=== PATIENT | female | born 1990 | race Caucasian/White ===

== ENCOUNTER 2019-04-08 16:38 | Emergency (ER) | payer BC ==
--- NOTE | 2019-04-08 17:27 | UC ---
FLU HPI - HPI Summary HPI Summary: 28 yo female presents with flu like symptoms. She tells me that yesterday she developed a fever of 100.4 and felt body aches and fatigue. Today her symptoms have improved and she has not had a temperature above 99F without treatment. She is currently 34 weeks with her first and last OBGYN check up was 4 days ago and everything was normal per pt. She denies headache, dizziness, sinus symptoms, sore throat, cough, SOB, chest pain, abdominal pain, n/v/d/c, dysuria, flank pain, pelvic pain, vaginal bleeding. Has felt the baby move and be very active as usual - History of Current Complaint Stated Complaint: FLU SYMPTOMS Time Seen by Provider: 04/08/19 17:27 Hx Obtained From: Patient Onset/Duration: Sudden Onset Severity Currently: Mild Severity Initially: Moderate Pain Intensity: 4 Pain Scale Used: 0-10 Numeric - Allergy/Home Medications Allergies/Adverse Reactions: Allergies Allergy/AdvReac Type Severity Reaction Status Date / Time No Known Allergies Allergy Verified 04/08/19 17:32 Home Medications: Home Medications Acetaminophen [Tylenol Extra Strength] 1,000 mg PO Q6H PRN 04/08/19 [History Confirmed 04/08/19] Vitamin TAB* 1 tab PO DAILY 04/08/19 [History Confirmed 04/08/19] PMH/Surg Hx/FS Hx/Imm Hx - Additional Past Medical History Additional PMH: None - Surgical History Surgical History: None - Family History Known Family History: Positive: None - Social History Occupation: Employed Full-time Lives: With Family Alcohol Use: None Substance Use Type: None Smoking Status (MU): Never Smoked Tobacco Review of Systems All Other Systems Reviewed And Are Negative: No Constitutional: Positive: Fever - resolved, Fatigue, Other - Body aches Skin: Positive: Negative Eyes: Positive: Negative ENT: Positive: Negative Respiratory: Positive: Negative Cardiovascular: Positive: Negative Gastrointestinal: Positive: Negative Genitourinary: Positive: Negative Motor: Positive: Negative Neurovascular: Positive: Negative Musculoskeletal: Positive: Negative Neurological: Positive: Negative Psychological: Positive: Negative Physical Exam - Summary Physical Exam Summary: GENERAL: NAD. WDWN. No pain distress. SKIN: No rashes, sores, lesions, or open wounds. HEENT: Head: AT/NC Eyes: EOM intact. Conjunctiva clear without inflammation or discharge. Ears: Hearing grossly normal. TMs intact, no bulging, erythema, or edema. Nose: Nasal mucosa pink and moist. NTTP maxillary and frontal sinus. Throat: Posterior oropharynx without exudates, erythema, or tonsillar enlargement. Uvula midline. NECK: Supple. Nontender. No lymphadenopathy. CHEST: CTAB. No accessory muscle use. Breathing comfortably and in no distress. CV: RRR. Pulses intact. Cap refill <2seconds NEURO: Alert. PSYCH: Age appropriate behavior. Triage Information Reviewed: Yes Vital Signs: Vital Signs: Temp Pulse Resp BP Pulse Ox 97.6 F 99 16 122/73 100 04/08/19 17:27 04/08/19 17:27 04/08/19 17:27 04/08/19 17:27 04/08/19 17:27 Laboratory Tests 04/08/19 04/08/19 04/08/19 17:41 17:44 17:50 POC Urine Color Yellow POC Urine Clarity Clear POC Urine pH 7.0 POC Ur Specif [place] 1.010 POC Urine Protein 1+ A POC Ur Glucose (UA) Negative POC Urine Ketones Negative POC Urine Blood Negative POC Urine Nitrite Negative POC Urine Bilirubin Negative POC Urine Urobilinogen 0.2 POC U Leukocyte Esteras Trace A Influenza A (Rapid) Negative Influenza B (Rapid) Negative Group A Strep Rapid Negative Vital Signs Reviewed: Yes Flu Course/Dx - Course Course Of Treatment: POC strep and flu negative. UA with trace leuks, but she is not having any urinary symptoms at this time - will send for culture and treat as needed. Suspect viral illness - she has been afebrile today without OTC tylenol or antipyretics. Advised to call her OBGYN in the morning and inform them of her symptoms. - Differential Dx/Diagnosis Provider Diagnosis: Body aches Discharge ED - Sign-Out/Discharge Documenting (check all that apply): Patient Departure All imaging exams completed and their final reports reviewed: No Studies - Discharge Plan Condition: Stable Disposition: HOME Patient Education Materials: Gastroesophageal Reflux Disease (ED) Referrals: Ketty HOPE,Makenna Recinos [Primary Care Provider] - Additional Instructions: If you develop a fever, shortness of breath, chest pain, new or worsening symptoms - please call your PCP or go to the ED immediately. Your urine, strep, and flu test were normal/negative today. I suspect your symptoms are due to a virus/cold and should improve within a few days. It also appears to be a [place] area if PPIs like omeprazole or pantoprazole are safe in - I recommend that you call your OBGYN in the morning and ask if this is ok to take. - Billing Disposition and Condition Condition: STABLE Disposition: Home
[2019-04-08 17:32] VITALS: BP 122/73
[2019-04-08 17:56] LABS: Influenza A Molecular NEGATIVE (Negative); Influenza B Molecular NEGATIVE (Negative)
== END 2019-04-08 18:04 | disposition home or self-care (01) ==
LOC: UCEAST 16:38
DX: O99.89 Other specified diseases and conditions complicating pregnancy, childbirth and the puerperium (principal); R52 Pain, unspecified; R53.83 Other fatigue; Z3A.34 34 weeks gestation of pregnancy
CPT/HCPCS: 81003; 87086; 87651; 99211; G0463

== ENCOUNTER 2019-04-10 18:27 | Emergency (ER) | payer BC ==
--- NOTE | 2019-04-10 20:44 | ED ---
HPI Febrile Illness - HPI Summary HPI Summary: This pt is a 28 Y/O gravid female at 35 weeks gestation presenting to [facility] accompanied by her family with a CC of a fever that at worse was 105 F and has been present since 04/07/19. She states that she has also has a headache which is rated an 8/10 in severity, chills, diaphoresis, and been feeling weak with a decreased appetite since the onset. She states that the last time she took her temperature it was axillary and was 102.5 F. She was recently diagnosed with acid reflux and was prescribed Prilosec today by her OB. She states that her baby is moving normally. She denies any SOB, vaginal discharge or bleeding, and urinary symptoms. She states that she was at 04/09/19 and was given a UA and flu swab. She states that she had alleviating symptoms after taking Tylenol and her last use was at 1730 today. She has no aggravating factors. She has a PMHx of GERD. she is . - History of Current Complaint Chief Complaint: EDFluSymptoms Time Seen by Provider: 04/10/19 20:20 Hx Obtained From: Patient Onset/Duration: Started Days Ago - 3, Still Present Timing: Constant, Lasting Days - 3 Temperature: 102.5 F - worse was 105 F Initial Severity: Severe Current Severity: Severe Pain Intensity: 8 - headache Pain Scale Used: 0-10 Numeric Aggravating Factors: Nothing Alleviating Factors: OTC Medicine - Tylenol Associated Signs and Symptoms: Negative - SOB, vaginal discharge or bleeding, and urinary symptoms, Chills, Diaphoresis, Headache, Weakness, Other: - decreased appetite - Allergy/Home Medications Allergies/Adverse Reactions: Allergies Allergy/AdvReac Type Severity Reaction Status Date / Time No Known Allergies Allergy Verified 04/10/19 18:48 PMH/Surg Hx/FS Hx/Imm Hx Previously Healthy: Yes Endocrine/Hematology History: Denies: Hx Diabetes Cardiovascular History: Denies: Hx Hypertension GI History: Reports: Hx Gastroesophageal Reflux Disease Sensory History: Reports: Hx Contacts or Glasses Opthamlomology History: Reports: Hx Contacts or Glasses - Surgical History Surgical History: Yes Surgery Procedure, Year, and Place: 2007 - Immunization History Immunizations Up to Date: Yes Infectious Disease History: No Infectious Disease History: Denies: Traveled Outside the [place] in Last 30 Days - Family History Known Family History: Positive: Cardiac Disease, Other - [place] - Social History Occupation: Employed Full-time Lives: With Family Alcohol Use: None Hx Substance Use: No Substance Use Type: Reports: None Hx Tobacco Use: No Smoking Status (MU): Never Smoked Tobacco Household Exposure: No Review of Systems - ROS Summary Review of Systems Summary: Home Medications Medication Instructions Recorded Confirmed Type Acetaminophen [Tylenol Extra 1,000 mg PO Q6H PRN 04/08/19 04/08/19 History Strength] Vitamin TAB* 1 tab PO DAILY 04/08/19 04/08/19 History Positive: Fever - worse: 105 F, RN TRANSITIONAL: 102.5 F , Chills, Skin Diaphoresis Negative: Shortness Of Breath Genitourinary: Negative - urinary symptoms, vaginal discharge or bleeding Positive: Headache, Weakness Psychological: Other - decreased appetite All Other Systems Reviewed And Are Negative: Yes Physical Exam - Summary Physical Exam Summary: General: Well-developed, Well-nourished Gravid female at 35 weeks gestation. G1 , P0, A0 No acute distress. HEENT: Normocephalic, Atraumatic. Eyes: Conjuctiva normal, PERRL. Ears: TMs within normal limits. Nares: (-) discharge, (-) erythema. Oropharynx: Clear, mucous membranes dry. (-) exudates. Neck: Soft, FROM, (-) lymphadenopathy, (-) thyromegaly, (-) JVD. Cardiovascular: Normal sinus rhythm, (-) murmur. Lungs: Clear to auscultation bilaterally (-) wheezes, (-) rales, (-) rhonchi. Abdomen: non-tender, Abdomen is soft, fundus is well above her umbilicus with good movement, normal bowel sounds Back: (-) CVA tenderness Extremities: No edema. Skin: Warm, dry, (-) rash. Neuro: Alert and oriented x3, no focal deficits. Psychiatric: Mood normal, affect normal. Triage Information Reviewed: Yes Vital Signs On Initial Exam: Initial Vitals Temp Pulse Resp BP Pulse Ox 99.3 F 124 18 109/69 97 04/10/19 18:42 04/10/19 18:42 04/10/19 18:42 04/10/19 18:42 04/10/19 18:42 Vital Signs Reviewed: Yes Procedures - Sedation Patient Received Moderate/Deep Sedation with Procedure: No Diagnostics - Vital Signs Vital Signs Temp Pulse Resp BP Pulse Ox 04/10/19 20:19 115 04/10/19 20:12 110/75 96 04/10/19 18:42 99.3 F 124 18 109/69 97 - Laboratory Result Diagrams: 04/10/19 21:20 04/10/19 21:20 Lab Statement: Any lab studies that have been ordered have been reviewed, and results considered in the medical decision making process. Re-Evaluation - Re-Evaluation First Eval Re-Evaluation Time: 22:38 Change: Improved Comment: I have discussed results with the patient and her fever is resolved. Discussed symptoms that warrant immediate return to ED. Course/Dx - Course Course Of Treatment: 28-year-old female at 35 weeks gestation presenting with fever and malaise. Patient was seen 2 days ago at urgent care. Had a negative strep, flu, urine. She is taking Tylenol for her fevers which helped some but then they come right back. She describes headache. Was prescribed Prilosec this morning from her HEALTH INFORMATION TECH for reflux. Patient received 2 L IV fluids for tachycardia and dehydration. Temperature stayed in the normal range. She was given Reglan for her headache. Feeling better after treatment and discharged to home. Workup shows no significant abnormalities. Mildly elevated white count as expected. Mild anemia as expected. Follow up with HEALTH INFORMATION TECH. Follow-up sooner for any worsening symptoms. - Diagnoses Provider Diagnoses: Viral illness, , incidental Discharge ED - Sign-Out/Discharge Documenting (check all that apply): Patient Departure - discharge - Discharge Plan Condition: Stable Disposition: HOME Patient Education Materials: Viral Syndrome (ED) Referrals: Ketty HOPE,Makenna Recinos [Primary Care Provider] - 2 Days Additional Instructions: PLEASE RETURN TO THE EMERGENCY DEPARTMENT FOR ANY NEW OR WORSENING SYMPTOMS. FOLLOW UP WITH YOUR PRIMARY CARE PROVIDER IN 1-3 DAYS. - Billing Disposition and Condition Condition: STABLE Disposition: Home - Attestation Statements Document Initiated by Scribe: Yes Documenting Scribe: Jaret Selby Provider For Whom Scribe is Documenting (Include Credential): Renea Rose MD Scribe Attestation: Jaret Luke, scribed for Renea Rose MD on 04/10/19 at 4180. Scribe Documentation Reviewed: Yes Provider Attestation: The documentation as recorded by the scribe, Jaret Selby accurately reflects the service I personally performed and the decisions made by me, Renea Rose MD Status of Scribe Document: Viewed
[2019-04-10] MEDS: Metoclopramide IV* 5 MG/ML 2 ML VIAL IV ONE (21:03)
[2019-04-10] MEDS: NS 0.9% 1000 ML** 1,000 ML IV ONE ×2 (21:07→21:19)
[2019-04-10 21:32] LABS: ABS Lymphocytes 0.2 10^3/ul (1.0-4.8); ABS Monocytes 0.3 10^3/ul (0-0.8); ABS Neutrophils 4.1 10^3/ul (1.5-7.7); Hematocrit 29 % (35-47); Hemoglobin 9.5 g/dL (12.0-16.0); Lymphocyte % 4.7 %; Mean Corpuscular HGB Conc 34 g/dL (31-36); Mean Corpuscular Hemoglobin 28 pg (27-31); Mean Corpuscular Volume 83 fL (80-97); Red Blood Count 3.43 10^6 /uL (3.70-4.87); Red Cell Distribution Width 13 % (10-15); White Blood Count 4.6 10^3/uL (3.5-10.8)
[2019-04-10 21:44] LABS: Albumin 2.8 g/dL (3.2-5.2); BUN/Creatinine Ratio 8.2 (8-20); Calcium 7.8 mg/dL (8.6-10.3); EGFR African American 142.4 (>60); EGFR Non-African American 117.7 (>60); Globulin 2.9 g/dL (2-4); Potassium 3.2 mmol/L (3.5-5.0); Total Bilirubin 0.9 mg/dL (0.2-1.0); Total Protein 5.7 g/dL (6.4-8.9)
[2019-04-10 21:54] LABS: Urine Appearance Cloudy; Urine Bilirubin Negative (Negative); Urine Blood Negative (Negative); Urine Color Yellow; Urine Glucose Negative (Negative); Urine Ketones 1+ (Negative); Urine Nitrite Negative (Negative); Urine Protein 1+(30 mg/dL) (Negative); Urine Specific Gravity 1.008 (1.010-1.030); Urine Urobilinogen Negative (Negative)
[2019-04-10 21:59] LABS: Urine Bacteria Absent (Absent); Urine Red Blood Cell Absent (Absent); Urine Squamous Epithelial Cell Present (Absent); Urine White Blood Cell Trace(0-5/hpf) (Absent)
[2019-04-10 22:04] LABS: Platelet Count Platelets clumped. 10^3/uL (150-450)
[2019-04-10] MEDS ORDERED: Acetaminophen TAB* 325 MG PO PRN (22:41)
[2019-04-10 23:06] VITALS: BP 116/68
[2019-04-11] MEDS ORDERED: Prenatal Vitamin TAB PO SCH (09:00)
== END 2019-04-10 23:04 | disposition home or self-care (01) ==
LOC: ED 18:27
DX: B34.9 Viral infection, unspecified (principal); O26.893 Other specified pregnancy related conditions, third trimester; K21.9 Gastro-esophageal reflux disease without esophagitis; Z3A.35 35 weeks gestation of pregnancy
CPT/HCPCS: 36415; 80053; 81003; 81015; 83605; 85025; 87086; 96361; 96374; 99282; J2765

== ENCOUNTER 2019-05-22 19:40 | Inpatient (IN) | payer BC ==
[2019-05-22] MEDS ORDERED: Buffered Lidocaine 1% SYRIN* 1 ML/SYRINGE INTRADERM ONE (22:13)
[2019-05-22] MEDS ORDERED: Lactated Ringers 1000 ML Bag* 1,000 ML IV ONE (22:13)
--- NOTE | 2019-05-22 22:22 | HP ---
General Information - Reason for Visit Contractions - General Information Maternal Age: 28 Grav: 1 Para: 0 SAB: 0 IEA: 0 Estimated Due Date: 05/17/19 Determined By: LMP Maternal Blood Type and Rh: O Positive - Results this Serology/RPR Result: Non-Reactive Rubella Result: Immune HBsAg Result: Negative HIV Result: Negative GBS Culture Result: Negative Past Medical History Delivery History: See Records Delivery History Comment: No prior deliveries Pertinent Past Medical History: Non-Contributory Pertinent Past Surgical History: None Pertinent Family History: Non-Contributory - Antepartal Records Antepartal Records: Reviewed, Uncomplicated Review of Systems Constitutional: Uncomfortable CV Complaint: No Respiratory: Shortness of Breath: No Gastrointestinal: No Nausea/Vomiting, Normal Bowel Movement Genitourinary: No Dysuria, No Leaking Fluid Musculoskeletal: No Epigastric Pain, Contractions Neurological: No Headache, No Visual Changes Movement: Normal Exam Allergies/Adverse Reactions: Allergies No Known Allergies Allergy (Verified 05/22/19 20:30) B/P: 120/83, P: 102, R: 18, T: 97.3 - Measurements Height: 5 ft 6 in Weight: 191 lb Weight in lbs: [phone] Body Mass Index (BMI): 30.8 Pre- Weight: 146 lb Weight Gained This : 45 lbs and 0 ozs - Exam Breast: Breast Exam Deferred CVA: No CVA Tenderness Extremities: No Edema Heart: Normal Rhythm/Heart Sounds HEENT: No Significant Findings Lungs: Clear Bilaterally Reflexes: DTR 2+ Thyroid: No Thyromegaly - Abdominal Exam Abdomen Exam: Non-Tender, Fundal Height Consistent with Dates - Ultrasound/Biophysical Profile Ultrasound Status: Not Done Targeted Exam Findings See L&D Outpatient Visit Provider Note for Findings: N/A Estimated Weight: 7.5 lb by kathy's Cervical Exam: 4cm Effacement: 90% Station: -2 Presenting Part: Vertex Membrane Status: Intact Bleeding/Discharge: Bloody Show EFM Findings - External Monitor Findings Baseline Heart Rate: 125 External Monitor Findings: Accelerations Present, No Pattern of Variable or Late Decelerations, Variability Moderate, Baseline Stable Contractions: Regular, Moderate, 45-90 Seconds Contraction Frequency: 3-5 min Assessment/Plan - Assessment A: IUP at 40 5/7 weeks Category I FHR, no evidence of metabolic acidemia GBS negative Early labor P: Admit to inpatient Patient plans epidural for pain management, will start IV lock and draw CBC/ Type and Screen Encouraged position changes Reassess PRN Anticipate SVB - Plan Plan: Admit - Anticipate Vaginal Delivery - Date/Time of Admission Date of Admission: 05/22/19 Time of Admission: 22:15
[2019-05-22] MEDS ORDERED: Morphine 10 MG/ML VIAL (1 ml) IM ONE (22:45)
[2019-05-22] MEDS ORDERED: Morphine INJ* 10 MG/ML 1 ML CARPUJECT IV ONE (22:45)
[2019-05-22] MEDS ORDERED: Promethazine INJ(RESTRICTED)* 25 MG/ML 1 ML VIAL IV ONE (22:45)
[2019-05-22] MEDS ORDERED: Morphine 10 MG/ML VIAL (1 ml) IV ONE (22:50)
[2019-05-22] MEDS ORDERED: Lactated Ringers 1000 ML Bag* 1,000 ML IV SCH (23:00)
[2019-05-22 23:02] LABS: Urine Benzodiazepine Screen None Detected (None Detect); Urine Opiates Screen None Detected (None Detect)
[2019-05-22 23:24] LABS: ABS Basophils 0.1 10^3/ul (0-0.2); ABS Lymphocytes 2.5 10^3/ul (1.0-4.8); ABS Monocytes 0.9 10^3/ul (0-0.8); ABS Neutrophils 10.1 10^3/ul (1.5-7.7); Eosinophil % 0.3 %; Hematocrit 36 % (35-47); Hemoglobin 11.4 g/dL (12.0-16.0); Lymphocyte % 18.3 %; Mean Corpuscular HGB Conc 32 g/dL (31-36); Mean Corpuscular Hemoglobin 25 pg (27-31); Mean Corpuscular Volume 78 fL (80-97); Nucleated Red Blood Cells % 0.1; Platelet Count 248 10^3/uL (150-450); Red Blood Count 4.53 10^6 /uL (3.70-4.87); Red Cell Distribution Width 15 % (10-15); White Blood Count 13.5 10^3/uL (3.5-10.8)
--- NOTE | 2019-05-23 00:18 | PN ---
Progress Note - Progress Note Date of Service: 05/23/19 Note: S: Feeling increasingly uncomfortable, received morphine/phenergan for therapeutic rest, but experienced SROM concurrently and not getting relief O: B/P: 120/83, P: 88, R: 18, T: 97.3 FHR: baseline 120, moderate variability, no accelerations, no decelerations UCs: q1-3 min, moderate to palpation VE: 6/100/-1, SROM to clear fluid. Moderate amount of bloody show A: IUP at 40 6/7 weeks Category II FHR, doubt metabolic acidemia Active labor P: Consult with Vannessa Blanton, anesthesiologist. Ok to place epidural as long as patient has close monitoring of O2 sats Will begin fluid bolus q2h temperatures Reassess PRN Anticipate SVB
[2019-05-23] MEDS ORDERED: OBEPIDURAL* 250 ML EPIDURAL ONE (00:19)
[2019-05-23] MEDS ORDERED: Famotidine TAB* 20 MG PO PRN (01:05)
[2019-05-23] MEDS ORDERED: Phenylephrine 40 MCG/ML SYRINGE IV PUSH PRN ×2 (01:05)
[2019-05-23] MEDS ORDERED: Sodium Citrate/Citric Acid* 15 ML UDC PO PRN (01:05)
[2019-05-23] MEDS ORDERED: Lactated Ringers 1000 ML Bag* 1,000 ML IV ONE (01:05)
[2019-05-23] MEDS ORDERED: EPHEDrine (Pressors)* 50 MG/ML VIAL IV PUSH PRN ×2 (01:05)
[2019-05-23] MEDS ORDERED: Lactated Ringers 1000 ML Bag* 500 ML IV PRN ×2 (01:05)
[2019-05-23] MEDS ORDERED: Lactated Ringers 1000 ML Bag* 1,000 ML IV SCH ×2 (02:00→05:00)
[2019-05-23] MEDS ORDERED: OBEPIDURAL* 250 ML EPIDURAL SCH (02:00)
[2019-05-23] MEDS ORDERED: Oxytocin in LR* 20 UNITS/1,000 ML BAG IVPB ONE (03:15)
[2019-05-23] MEDS ORDERED: Methylergonovine INJ* 0.2 MG/ML 1ML AMP ONE (03:57)
[2019-05-23] MEDS ORDERED: Methylergonovine INJ* 0.2 MG/ML 1ML AMP IM ONE (04:13)
[2019-05-23] MEDS ORDERED: Glycerin ADULT SUPP PR PRN (04:13)
--- NOTE | 2019-05-23 04:23 | PROCNOTE ---
[facility] OB: Delivery Note - Delivery A Date of : 05/23/19 Time of : 03:23 [place] Sex: Female Score 1 Minute: 9 Score 5 Minutes: 9 Gestational Age in Weeks and Days at Delivery: 40 Weeks and 6 Days Delivery Method: Spontaneous Vaginal Labor: Spontaneous Did Patient attempt ?: N/A, No Previous Amniotic Fluid: Clear Estimated Blood Loss: 700 Anesthesia/Analgesia: CEI for Labor Anesthesia Comment: Dr. Leiva Delivered By: Rosalba Carlson - Nursery Level of Nursery: Regular/Bedside - Perineum Perineal Injury: Perineal Laceration, 2nd Degree Perineal Injury Comment: Repaired with 3-0 Vicryl under lidocaine infiltration Perineal Repair: By Delivering Practioner - Events Delivery Events of Note: Pitocin Only After Delivery, Supplemental O2 to Mother , Post- Bleeding - Meds Given - Risk for Falls Delivered OB Patient- Risk for Falls: Heavy Bleeding Fall Risk: Patient is at High Risk for Falls - Additional Delivery Notes Additional Delivery Notes: now 40 6/7 weeks presented in spontaneous labor, experienced SROM to clear fluid at 2353, received CEI per request with poor pain control. Progressed to complete and complete, began pushing spontaneously at 0202 with good maternal effort. Category II tracing throughout pushing with decelerations into the 90s/ 100s with recovery to 115s. Slow controlled delivery of head OA to ANASTASIIA at 0323, shoulders followed easily with next push. Female infant delivered to maternal abdomen, HR > 110, vigorous cry. Apgars 9 and 9. Cord was doubly clamped and cut by infants father once pulsations ceased. Intact len placenta at 0336, large gush of blood noted behind placenta. Membranes appeared intact. Fundus firm with massage, IV pitocin initiated. Second degree laceration noted, repaired as above. Intermittent bleeding noted throughout repair, numerous clots expressed by analysis internship. IM methergine given. weight pending for skin to skin, mother and infant stable at time of note. Infant feeding plan is breast.
[2019-05-23] MEDS ORDERED: Oxytocin in LR* 20 UNITS/1,000 ML BAG IVPB SCH (05:00)
[2019-05-23] MEDS: Ibuprofen TAB* 600 MG PO SCH ×3 (05:02→20:53)
[2019-05-23] MEDS: Witch Hazel PAD* JAR TOPICAL PRN ×2 (05:02→21:01)
[2019-05-23] MEDS: Dibucaine 1% 28.35 GM TUBE PR PRN ×2 (05:02→21:01)
[2019-05-23] MEDS ORDERED: Lidocaine 1% INJ* 10 MG/ML 30 ML SDV ONE (06:29)
[2019-05-23] MEDS ORDERED: Simethicone TAB* 80 MG TAB.CHEW PO SCH (08:30)
[2019-05-23] MEDS: Docusate CAP* 100 MG PO SCH ×3 (12:17→20:53)
--- NOTE | 2019-05-23 21:31 | PN ---
Progress Note - Progress Note Date of Service: 05/23/19 - Note time 2014 Note: Delivery day: Feeling really well, happy re , that she didn't need induction. Tired and sore, doing well with ibuprofen. starting out well; getting help from RNs. Ambulating and voiding without problems. VSS, afebrile. Anticipate discharge home on 05/25/19.
[2019-05-24] MEDS: Ibuprofen TAB* 600 MG PO SCH ×3 (08:10→21:40)
[2019-05-24] MEDS: Acetaminophen TAB* 325 MG PO PRN ×2 (08:11→19:43)
[2019-05-24] MEDS: Docusate CAP* 100 MG PO SCH ×3 (08:11→21:40)
[2019-05-24 11:44] LABS: ABS Basophils 0.1 10^3/ul (0-0.2); ABS Eosinophils 0.1 10^3/ul (0-0.6); ABS Lymphocytes 2.3 10^3/ul (1.0-4.8); ABS Monocytes 0.8 10^3/ul (0-0.8); ABS Neutrophils 11.9 10^3/ul (1.5-7.7); Eosinophil % 0.7 %; Hematocrit 28 % (35-47); Hemoglobin 9.1 g/dL (12.0-16.0); Mean Corpuscular HGB Conc 33 g/dL (31-36); Mean Corpuscular Hemoglobin 26 pg (27-31); Mean Corpuscular Volume 80 fL (80-97); Mean Platelet Volume 10.2 fL (7.4-10.4); Nucleated Red Blood Cells % 0.1; Platelet Count 213 10^3/uL (150-450); Red Blood Count 3.48 10^6 /uL (3.70-4.87); Red Cell Distribution Width 15 % (10-15); White Blood Count 15.2 10^3/uL (3.5-10.8)
[2019-05-24] MEDS: Ferrous Gluconate TAB* 324 MG TAB PO SCH ×2 (14:48→21:41)
--- NOTE | 2019-05-24 21:49 | PTEDU ---
Patient Name: AMI MILLER AMI MILLER selected video: Never Ever Shake a Baby to view on 05/24/2019 at 9:49:00 PM from [facility] [place] [id number]
--- NOTE | 2019-05-24 22:02 | PTEDU ---
Patient Name: AMI MILLER AMI MILLER selected video: BBOB: Nurturing Your Gorgeous &Growing Baby by to view on 05/24/2019 at 10:01:32 [id number]
--- NOTE | 2019-05-24 22:37 | PTEDU ---
Patient Name: AMI MILLER AMI MILLER selected video: BBOB: Bonding Through Infant Massage to view on 05/24/2019 at 10:36:2 7 [id number]
[2019-05-25] MEDS: Ibuprofen TAB* 600 MG PO SCH (08:18)
[2019-05-25] MEDS: Acetaminophen TAB* 325 MG PO PRN (08:20)
[2019-05-25] MEDS: Ferrous Gluconate TAB* 324 MG TAB PO SCH (08:21)
[2019-05-25] MEDS: Docusate CAP* 100 MG PO SCH (08:21)
[2019-05-25 09:14] VITALS: BP 124/87
== END 2019-05-25 11:50 | disposition home or self-care (01) | DRG 560 ==
LOC: MCHOBOUT 19:40 → MCHOB 22:11
PROVIDERS: ADMIT Midwife; ATTEND Midwife
PROC: 10E0XZZ Delivery of Products of Conception, External Approach (ICD-10-PCS; principal; 2019-05-23)
PROC: 0KQM0ZZ Repair Perineum Muscle, Open Approach (ICD-10-PCS; 2019-05-23)
DX: O48.0 Post-term pregnancy (principal); Z37.0 Single live birth; O70.1 Second degree perineal laceration during delivery; Z3A.40 40 weeks gestation of pregnancy
CPT/HCPCS: 36415; 80307; 85025; 86850; 86900; 86901; A9270-GY; J2210; J2270; J2550